=== PATIENT | female | born 1995 | race Caucasian/White ===

== ENCOUNTER 2018-03-15 07:54 | Inpatient (IN) ==
[2018-03-15] MEDS ORDERED: Lidocaine 1% 20 ML MDV INFILT PRN (08:03)
[2018-03-15] MEDS ORDERED: Famotidine 20 MG/2 ML VIAL IVP PRN (08:03)
[2018-03-15] MEDS ORDERED: Naloxone 0.4 MG/ML INJ IVP PRN (08:03)
[2018-03-15] MEDS ORDERED: miSOPROStol 25 MCG TABLET VG ONE (08:05)
[2018-03-15] MEDS ORDERED: Ringers Solution, Lactated 1,000 ML IVC SCH (08:15)
[2018-03-15 08:38] LABS: Basophils % 0.3 %; Eosinophils # 0.1 K/mcL (0.0-0.6); Eosinophils % 0.4 %; Hemoglobin 13.8 g/dL (11.5-15.4); Immature Granulocytes % 0.4 % (0-4); Lymphocytes # 1.5 K/mcL (0.6-4.6); Lymphocytes % 11.3 %; Mean Corpuscular HGB Conc 35.4 g/dL (31.6-35.5); Mean Corpuscular Hemoglobin 32.2 pg (28.0-33.3); Mean Corpuscular Volume 91.1 fL (83.0-100.0); Mean Platelet Volume 12.8 fL (9.4-12.4); Monocytes # 0.5 K/mcL (0.0-1.3); Neutrophils # 11.1 K/mcL (1.6-8.9); Platelet Count 118 K/mcL (140-400); Red Blood Count 4.28 M/mcL (3.82-4.97); Red Cell Distribution Width 12.5 % (11.5-14.5); Segmented Neutrophils % 83.6 %
[2018-03-15 08:49] LABS: Amphetamine Screen,Urine Negative ng/mL (Cutoff=1000); Barbiturate Screen,Urine Negative ng/mL (Cutoff=200); Benzodiazepines Screen,Urine Negative ng/mL (Cutoff=200); Cannabinoid Screen,Urine Positive ng/mL (Cutoff = 50); Cocaine Screen,Urine Negative ng/mL (Cutoff= 300); Opiate Screen,Urine Negative ng/mL (Cutoff=300); Phencyclidine Screen,Urine Negative ng/mL (Cutoff=25)
[2018-03-15] MEDS ORDERED: *HR* Nalbuphine 10 MG/ML AMPUL IV PRN (09:48)
--- NOTE | 2018-03-15 10:55 | OB Labor Progress Note ---
Date of Encounter: 03/15/18 Time of Encounter: 10:53 Labor Progress Note - Subjective Subjective: Pt uncomfortable with uc's. No vaginal bleeding or LOF. - Cervix Cervix: 890/-1 - Heart Tones Heart Tones: RNST - Teague Teague: uc's q 2 min - Interventions Interventions: AROM MSF - Plan Plan: Expect
--- NOTE | 2018-03-15 10:59 | OB/GYN History & Physical ---
Date of Encounter: 03/15/18 Time of Encounter: 10:56 Assessment and Plan (1) Term Current visit: Yes Status: Acute 22 yo presents for induction of labor, and is found to be in active labor. On arrival pt reports strong contractions since 1 am. She denies vaginal bleeding or ROM. has been uncomplicated. History of Present Illness Chief complaint: Here for induction, c/o uc's q 3 min. HPI: Ms. Gonzalez is a 22 year old female 22yo female presents with c/o uc's since 1 am, no vaginal bleeding or leakage of fluid. Past Med Surg Social Fam HX - Past Medical History Source: patient, old records reviewed Medical history: GERD Psychiatric history: no psych history - Past Surgical History Surgical History: no surgical history - Social History Smoking Status: Former smoker Smokeless Tobacco Status: No Alcohol use: none Drug use: none - Family History Paternal Grandmother Living Status: Cause of : [place] Hx Family Cardiac Disorders: Yes ([place]) Obstetrical History - Pregnancies : 2 Ab's: 1 Medications and Allergies Vit/Iron Fumarate/FA [ Tablet] 1 tab PO DAILY 03/15/18 [History ] 3 Allergy/AdvReac Type Severity Reaction Status Date / Time diphenhydramine Allergy Difficulty Verified 08/13/17 12:37 [From Benadryl] Breathing Exam - Constitutional Constitutional: well developed, no acute distress - HEENT HEENT: EOMI - Neck Neck exam: full ROM - Lungs Respiratory exam: CTAB - Cardiovascular Cardiovascular exam: RRR - Abdomen Abdomen: Present: gravid - Extremities Extremities exam: full ROM - Cervix Dilation: 7 Effacement: 90 Station: -2 Results Result Diagrams: 03/15/18 08:18 Abnormal lab results WBC 13.3 K/mcL (4.3-11.1) H 03/15/18 08:18 Plt Count 118 K/mcL (140-400) L 03/15/18 08:18 MPV 12.8 fL (9.4-12.4) H 03/15/18 08:18 Neutrophils # 11.1 K/mcL (1.6-8.9) H 03/15/18 08:18 U Marijuana (THC) Screen Positive ng/mL (Cutoff = 50) H 03/15/18 08:18 All other labs normal. - VTE Reasons for not Prescribing Prophylaxis: Treatment not Indicated - Low risk for VTE
[2018-03-15 11:31] LABS: Hematocrit 40.7 % (35.3-44.9); Hemoglobin 14.1 g/dL (11.5-15.4); Mean Corpuscular HGB Conc 34.6 g/dL (31.6-35.5); Mean Corpuscular Hemoglobin 31.7 pg (28.0-33.3); Mean Corpuscular Volume 91.5 fL (83.0-100.0); Platelet Count 125 K/mcL (140-400); Red Blood Count 4.45 M/mcL (3.82-4.97); Red Cell Distribution Width 12.5 % (11.5-14.5)
[2018-03-15] MEDS ORDERED: *HR* FentaNYL (PF) 100 MCG/2 ML VIAL EP ONE (11:53)
[2018-03-15] MEDS ORDERED: Bupivacaine-MPF 0.25% 10 ML VIAL EP ONE (11:53)
[2018-03-15] MEDS ORDERED: *HR* FentaNYL (PF) 100 MCG/2 ML VIAL ONE (11:54)
[2018-03-15] MEDS ORDERED: Bupivacaine-MPF 0.25% 10 ML VIAL ONE (11:54)
[2018-03-15] MEDS ORDERED: Epidural Premix (fent/bupiv) 110 ML EP ONE (11:57)
[2018-03-15] MEDS ORDERED: Epidural Premix (fent/bupiv) 110 ML EP SCH (12:00)
--- NOTE | 2018-03-15 12:33 | Anesthesia Evaluation PreOp ---
Date of Encounter: 03/15/18 Time of Encounter: 12:31 - Past History Planned Operation: MARISOL Cardiac History: Denies any Significant Hx Pulmonary History: Denies Any Significant HX COMMUNITY HEALTH EDUCATOR History: Denies Any Significant HX Other Medical History: Other (mild scoliosis per patient) Anesthesia History: No Prior Anesthetic Complications (never had any procedure requiring GA or NA; denies personal h/o GA complications) : Yes Test: Positive Alcohol Use: none Drug use: none Medications and Allergies Vit/Iron Fumarate/FA [ Tablet] 1 tab PO DAILY 03/15/18 [History ] 3 Allergy/AdvReac Type Severity Reaction Status Date / Time diphenhydramine Allergy Difficulty Verified 08/13/17 12:37 [From Benadryl] Breathing - Meds/Allergy Pre-op Review Medications Reviewed: Yes Allergies Reviewed: Yes Beta Blockers on Current Med List: No Anesthesia Results - Labs 03/15/18 10:54 Anesthesia Exam 140/87, 61, RR 24 Height: 1.65m Weight: 92kg NPO (# of Hours): solids > 8hrs Pain Scale: 10 Pain Scale Used: Balderrama-Adam (Faces) - HEENT Pupil (Motor): Pupils equal Mallampati: II Teeth: Normal Oral Opening: Greater than 3 - COMMUNITY HEALTH EDUCATOR LOC: Oriented COMMUNITY HEALTH EDUCATOR Motor: Normal RUE, Normal LUE, Normal RLE, Normal LLE, Normal Face COMMUNITY HEALTH EDUCATOR Sensory: Normal: RUE, LUE, RLE, LLE, Face - Cardiac Rhythm: Regular Murmur: None - Pulmonary Breath Sounds: bilateral Clear Respiratory Effort: Symmetrical Anesthesia Assess/Plan ASA Score: 2 Modified [place] Scale for Level of Consciousness: Anixous, agitated or restless Anesthetic Plan: Regional Autologous Blood: No Monitoring Plan: Standard Monitors Recovery Plan: Other
--- NOTE | 2018-03-15 12:36 | Anesthesia Procedures ---
Date of Encounter: 03/15/18 Time of Encounter: 12:33 Procedures: Anesthesia - Epidural/Spinal Patient ID/Chart reviewed: Yes Patient examined: Yes OB Eval: : 2 OB Eval: Hx Para: 0 OB Eval: Contractions: Non-stressed pattern Consent Obtained: Yes Supplemental Oxygen: None/Room Air Site Prep: Aseptic Technique, Sterile prep and drape, Povidone-Iodine 1% Patient position: upright Local Anesthetic: Lidocaine 1% Amount of Local Anesthetic used: 3 Touhy Needle Gauge: 18 Touhy Needle Depth (cm): 6 Catheter Depth at Skin (cm): 11 Test Dose (1.5% Lido + Epi): Volume given (mls): 5 Test Dose Result: Negative Loading Dose: 0.25% Marcaine (mls): 5 Loading Dose: Fentanyl (mcg): 100 Loading Dose Administered: Thru Catheter Infusion Med: 0.125% Bupivacaine w/ 2 mcg/ml Fentanyl Infusion Rate (mls/hr): 14 (w/ demand bolus of 5mL q30min PRN) Catheter Secured in Place: Tegaderm, Tape Interspace Used: L4-L5 Loss of Resistance (DENNY): Yes Blood: No CSF: No Paresthesia: Yes (transient paresthesia to R hip w/ catheter placement) Procedure: successful on 1st attempt Vitals + FHT's: please see Melissa LEVINE's VS entry record
[2018-03-15] MEDS ORDERED: Ondansetron 4 MG/2 ML VIAL ONE (13:16)
[2018-03-15] MEDS ORDERED: Ondansetron 4 MG/2 ML VIAL IVP ONE (13:16)
--- NOTE | 2018-03-15 15:01 | OB/GYN Procedure Note ---
Delivery - Delivery Date: 03/15/18 Provider: Gene Martin Intrapartum events: none Delivery induction: none Delivery augmentation: rupture of membranes Delivery monitor: external FHT, external uterine Anesthesia: epidural Estimated Blood Loss: 250 - Infant (s) Infant A Delivery Date: 03/15/18 Infant Delivery Time: 14:35 Presentation: vertex Position: ABDIRIZAK Route of delivery: Gender: Male Viability: Viable Pounds: 6 Ounces: 13 at 1 minute: 7 at 5 mins: 9 Shoulder Dystocia: not encountered Specimens collected: cord blood Placenta: spontaneous Cord: 3 umbilical vessels - Repair Episiotomy: none Laceration Description: Periurethral - Complications Delivery complications: none - Disposition Mom disposition: stable in LDR disposition: stable in LDR - Comments Comments: Pt s/p of liveborn male infant without incident from ABDIRIZAK. Spontaneous dellivery of normal placenta 3 VC. Bilateral yana-uretheral tears with 3-0 vicrl suture under epidural anesthesia. EBL 300 cc. MSF noted and respiratory and nurser personel were in attendance at delivery.
[2018-03-15] MEDS ORDERED: Rho Immune Globulin 1,500 UNIT SYRINGE IM PRN (17:09)
[2018-03-15] MEDS ORDERED: Oxytocin 20 units/ LR 1000 mL 20 UNIT/1,000 ML BAG IVC SCH (17:09)
[2018-03-15] MEDS ORDERED: Measles/Mumps/Rubella Vacc 0.5 ML VIAL SQ PRN (17:09)
[2018-03-15] MEDS: Acetaminophen 325 MG TABLET PO PRN (21:14)
[2018-03-16 06:37] LABS: Basophils % 0.3 %
[2018-03-16 06:39] LABS: Eosinophils # 0.1 K/mcL (0.0-0.6); Hemoglobin 11.8 g/dL (11.5-15.4); Immature Granulocytes % 0.3 % (0-4); Immature Platelets 17.7 % (1.1-6.1); Lymphocytes # 2.4 K/mcL (0.6-4.6); Lymphocytes % 19.8 %; Mean Corpuscular HGB Conc 34.7 g/dL (31.6-35.5); Mean Corpuscular Hemoglobin 32.2 pg (28.0-33.3); Mean Corpuscular Volume 92.6 fL (83.0-100.0); Mean Platelet Volume 13.2 fL (9.4-12.4); Monocytes # 0.5 K/mcL (0.0-1.3); Monocytes % 4.4 %; Neutrophils # 8.8 K/mcL (1.6-8.9); Platelet Count 105 K/mcL (140-400); Red Blood Count 3.67 M/mcL (3.82-4.97); Red Cell Distribution Width 12.5 % (11.5-14.5); Segmented Neutrophils % 74.2 %
[2018-03-16] MEDS: Acetaminophen 325 MG TABLET PO PRN (08:03)
[2018-03-16 08:12] VITALS: BP 146/96
[2018-03-16] MEDS ORDERED: Prenatal Vit/FA 1 EACH TABLET PO SCH (09:00)
--- NOTE | 2018-03-16 09:30 | Discharge Summary ---
Date of Encounter: 03/16/18 Time of Encounter: 09:28 - Discharge Diagnosis (1) Vaginal delivery Priority: Primary Status: Acute Comments: Continue routine care discharge home today follow up with Dr. Martin in 4-6 weeks (2) Breast feeding status of mother Priority: Secondary Status: Acute Comments: support prn - Discharge Medications Prescriptions: Ibuprofen [Motrin] 600 mg PO Q6HR PRN #60 tab PRN Reason: pain Breast Pump [BREAST PUMP] 1 each .ROUTE AD #1 each Docusate [Colace] 100 mg PO BID #30 capsule Home Medications: Acetaminophen [Tylenol] 650 mg PO Q6HR PRN tablet 03/16/18 [Rx] Breast Pump [BREAST PUMP] 1 each .ROUTE AD #1 each 03/16/18 [Rx] Docusate [Colace] 100 mg PO BID #30 capsule 03/16/18 [Rx] Ibuprofen [Motrin] 600 mg PO Q6HR PRN #60 tab 03/16/18 [Rx] Vit/FA 1 each PO DAILY tablet 03/16/18 [Rx] Allergies/Adverse Reactions: 3 Allergy/AdvReac Type Severity Reaction Status Date / Time diphenhydramine Allergy Difficulty Verified 08/13/17 12:37 [From Benadryl] Breathing Data Procedures and tests throughout hospitalization: Laboratory Tests 03/15/18 03/15/18 03/15/18 08:18 08:18 10:54 WBC 13.3 H 13.0 H RBC 4.28 4.45 Hgb 13.8 14.1 Hct 39.0 40.7 MCV 91.1 91.5 MCH 32.2 31.7 MCHC 35.4 34.6 RDW 12.5 12.5 Plt Count 118 L 125 L MPV 12.8 H 13.0 H Immature Gran % 0.4 Seg Neutrophils % 83.6 Lymphocytes % 11.3 Monocytes % 4.0 Eosinophils % 0.4 Basophils % 0.3 Neutrophils # 11.1 H Lymphocytes # 1.5 Monocytes # 0.5 Eosinophils # 0.1 Basophils # 0.0 Immature Plt Fraction Urine Opiates Screen Negative Ur Barbiturates Screen Negative Ur Phencyclidine Scrn Negative Ur Amphetamines Screen Negative U Benzodiazepines Scrn Negative Urine Cocaine Screen Negative U Marijuana (THC) Screen Positive H 03/16/18 06:23 WBC 11.9 H RBC 3.67 L Hgb 11.8 D Hct 34.0 L MCV 92.6 MCH 32.2 MCHC 34.7 RDW 12.5 Plt Count 105 L MPV 13.2 H Immature Gran % 0.3 Seg Neutrophils % 74.2 Lymphocytes % 19.8 Monocytes % 4.4 Eosinophils % 1.0 Basophils % 0.3 Neutrophils # 8.8 Lymphocytes # 2.4 Monocytes # 0.5 Eosinophils # 0.1 Basophils # 0.0 Immature Plt Fraction 17.7 H Urine Opiates Screen Ur Barbiturates Screen Ur Phencyclidine Scrn Ur Amphetamines Screen U Benzodiazepines Scrn Urine Cocaine Screen U Marijuana (THC) Screen Labs on day of discharge: Labs from last 24 hours 03/16/18 03/15/18 06:23 10:54 WBC 11.9 H 13.0 H RBC 3.67 L 4.45 Hgb 11.8 D 14.1 Hct 34.0 L 40.7 MCV 92.6 91.5 MCH 32.2 31.7 MCHC 34.7 34.6 RDW 12.5 12.5 Plt Count 105 L 125 L MPV 13.2 H 13.0 H Immature Gran % 0.3 Seg Neutrophils % 74.2 Lymphocytes % 19.8 Monocytes % 4.4 Eosinophils % 1.0 Basophils % 0.3 Neutrophils # 8.8 Lymphocytes # 2.4 Monocytes # 0.5 Eosinophils # 0.1 Basophils # 0.0 Immature Plt Fraction 17.7 H Date of admission: 03/15/18 07:54 Primary care physician: PCP ALEXA Consults: 03/15/18 17:09 Consult to Billing Checker [CONS] Routine Comment: Vaginal delivery, consult needed Discharging clinician: Liz Rodrigez Anticipated date of discharge: 03/16/18 - Patient Status Disposition: Home, Self-Care Condition: Good Functional capacity at discharge: independent ambulation - Discharge Instructions Follow Up With: NONE,PCP [Primary Care Provider] - Gene Martin MD [Partnered Physician] - - Diet and Activity Activity: increase activity as tolerated Diet: regular diet Hospital Course Reason for admission: induction of labor Delivery: Episiotomy: none Other procedures: none complications: none Discharge diagnosis: IUP at term delivered baby: male (breast feeding) Time Attestation: Total time spent providing and/or coordinating discharge services: Time Spent: Less than 30 minutes Exam - Constitutional Vitals: Temp Pulse Resp BP Pulse Ox 98.2 F 54 16 146/96 97 03/16/18 08:11 03/16/18 08:11 03/16/18 08:19 03/16/18 08:11 03/16/18 03:35 General appearance IM: A&O X 3, pleasant, answers questions appropriately - Respiratory Respiratory exam: Present: CTAB - Cardiovascular Cardiovascular exam IM: Present: RRR, +S1, +S2 - GI/Abdominal GI/Abdominal exam IM: normal bowel sounds - Uterine Tone: Firm Uterus Position: 1 Finger Below Umbilicus, Midline - Extremities Exam Extremities exam IM: Present: full ROM, normal capillary refill, normal inspection - Neurological Exam Neurological exam: alert, oriented X3, reflexes normal
[2018-03-16] MEDS ORDERED: Benzocaine/Menthol 56 GM AEROSOL SPRAY TP PRN (12:37)
== END 2018-03-16 15:59 | disposition home or self-care (01) | DRG 560 ==
LOC: 1NENULAB 07:54 → 1NENUOBS 17:05
PROVIDERS: ADMIT Obstetrics & Gynecology; ATTEND Obstetrics & Gynecology